=== PATIENT | female | born 1940 | race Caucasian/White ===

== ENCOUNTER 2025-01-11 09:55 | Inpatient (IN) | payer MEDICARE, OTHER ==
[~2025-01-11] VITALS: Ht 157.5 cm; Wt 72.1 kg
[2025-01-11 11:41] VITALS: BP 133/66; TEMP 98.2
[2025-01-11 12:23] VITALS: BP 133/66; TEMP 98.2
[2025-01-12 10:21] VITALS: BP 129/53; TEMP 97.8; O2SAT 94
[2025-01-12] MEDS ORDERED: AMIO200T5 PO (11:25)
[2025-01-12] MEDS ORDERED: APIX2.5T PO (11:25)
[2025-01-12] MEDS ORDERED: AMLO10TA59 PO (11:25)
[2025-01-12] MEDS ORDERED: ATOR20TA PO (11:27)
[2025-01-12] MEDS ORDERED: ASPI81TA31 PO (11:27)
[2025-01-12] MEDS ORDERED: DOCU-141 PO (11:32)
[2025-01-12] MEDS ORDERED: FERR-56 PO (11:32)
[2025-01-12] MEDS ORDERED: LORA-114 PO (11:32)
[2025-01-12] MEDS ORDERED: CAPSAICIN 0.075% TOP (11:32)
[2025-01-12] MEDS ORDERED: HYDR-4209 PO (11:32)
[2025-01-12] MEDS ORDERED: LOSA100T31 PO (11:38)
[2025-01-12] MEDS ORDERED: SPIR25TA6 PO (11:38)
[2025-01-12] MEDS ORDERED: TRAM50TA2 PO (11:38)
[2025-01-12] MEDS ORDERED: METO50TA7 PO (11:38)
[2025-01-12] MEDS: HYDROCODONE/APAP 5-325MG TABLET PO PRN (13:25)
[2025-01-12] MEDS: AMIODARONE HCL 200 MG TABLET PO SCH (13:32)
[2025-01-12] MEDS: LORATADINE 10 MG TABLET PO SCH (13:33)
[2025-01-12] MEDS: FERROUS SULFATE 325 MG TABEC PO SCH (13:33)
[2025-01-12] MEDS: SPIRONOLACTONE 25 MG TABLET PO SCH (13:33)
[2025-01-12] MEDS: AMLODIPINE 10 MG TABLET PO SCH (13:33)
[2025-01-12] MEDS: APIXABAN 2.5 MG TABLET PO SCH (13:34)
[2025-01-12 16:29] VITALS: BP 118/79; TEMP 97.7; O2SAT 93
[2025-01-12] MEDS: DOCUSATE SODIUM 100 MG CAPSULE PO SCH (16:40)
[2025-01-12 20:00] VITALS: BP 155/56; TEMP 97.6; O2SAT 95
[2025-01-12] MEDS: ATORVASTATIN 20 MG TABLET PO SCH (20:39)
[2025-01-12 22:22] VITALS: BP 138/63; TEMP 97.6; O2SAT 95
[2025-01-13 07:00] VITALS: BP 146/56; TEMP 97.8; O2SAT 92
[2025-01-13 07:31] VITALS: BP 135/62; TEMP 97.7; O2SAT 94
[2025-01-13] MEDS: METOPROLOL SUCCINATE XL 50 MG TAB.SR.24H PO SCH (08:20)
[2025-01-13 09:28] LABS: BASOPHILS % (AUTO) 0.5 % (0.0-2.0); EOSINOPHILS # (AUTO) 0.1 K/uL (0.0-0.7); HEMATOCRIT 36.6 % (31.2-41.9); HEMOGLOBIN 12.2 g/dL (10.9-14.3); LYMPHOCYTES # (AUTO) 2.6 K/uL (0.8-4.8); LYMPHOCYTES % (AUTO) 27.8 % (20.5-51.5); MEAN CORPUSCULAR HEMOGLOBIN 30.1 uug (24.7-32.8); MEAN CORPUSCULAR HGB CONC 33 g/dL (32.3-35.6); MEAN CORPUSCULAR VOLUME 90.2 fL (75.5-95.3); MONOCYTES # (AUTO) 0.9 K/uL (0.1-1.30); MONOCYTES % (AUTO) 9.6 % (0.0-11.0); NEUTROPHILS # (AUTO) 5.7 K/uL (1.8-8.9); NEUTROPHILS % (AUTO) 61.1 % (38.5-71.5); PLATELET COUNT (AUTO) 414 K/uL (179-408); RED BLOOD CELL COUNT(AUTO) 4.06 MIL/uL (3.63-4.92); RED CELL DISTRIBUTION WIDTH 13.6 % (12.3-17.7); WHITE BLOOD COUNT (AUTO) 9.3 K/uL (3.8-11.8)
[2025-01-13 09:34] LABS: DIFFERENTIAL COMMENT 1
[2025-01-13 09:46] LABS: ALANINE AMINOTRANSFERASE 69 U/L (14-59); ALBUMIN 2.4 g/dL (3.4-5.0); ALKALINE PHOSPHATASE 152 U/L (50-136); ASPARTATE AMINOTRANSFERASE 47 U/L (15-37); BILIRUBIN,TOTAL 0.3 mg/dL (0.2-1.0); CALCIUM 9.2 mg/dL (8.5-10.1); CARBON DIOXIDE 29 mmol/L (21-32); CHLORIDE 102 mmol/L (98-107); CREATININE 0.7 mg/dL (0.6-1.3); GLUCOSE 111 mg/dL (74-106); MAGNESIUM 2.2 mg/dL (1.8-2.4); PHOSPHOROUS 4.7 mg/dL (2.5-4.9); SODIUM SERUM 139 mmol/L (136-145); TOTAL PROTEIN, SERUM 6.7 g/dL (6.4-8.2); UREA NITROGEN, BLOOD 10 mg/dL (7-18)
[2025-01-13 09:53] LABS: THYROID STIMULATING HORMONE 1.662 mIU/mL (0.358-3.740)
[2025-01-13 10:38] LABS: IRON, SERUM 49 ug/dL (50-175)
[2025-01-13 11:05] LABS: CHOLESTEROL 140 mg/dL (<200); HDL CHOLESTEROL 45 mg/dL (40-60); TRIGLYCERIDES 105 MG/DL (30-150)
[2025-01-13] MEDS: LIDOCAINE 5% PATCH TD SCH (12:56)
[2025-01-13 15:41] VITALS: BP 133/59; TEMP 97.8; O2SAT 91
[2025-01-13 20:00] VITALS: BP 134/52; TEMP 97.9; O2SAT 92
[2025-01-14 08:00] VITALS: BP 136/61; TEMP 98; O2SAT 92
[2025-01-14 16:00] VITALS: BP 143/65; TEMP 97.2; O2SAT 98
[2025-01-14] MEDS: ENSURE ENLIVE (VAN) 240 ML LIQUID PO SCH (17:34)
[2025-01-14 20:35] VITALS: BP 130/41; TEMP 97.2; O2SAT 92
[2025-01-15 07:22] VITALS: BP 136/53; TEMP 97.8; O2SAT 94
[2025-01-15 08:04] VITALS: BP 116/51; TEMP 97.8; O2SAT 95
[2025-01-15 16:07] VITALS: BP 145/52; TEMP 97.8; O2SAT 95
[2025-01-15 20:49] VITALS: BP 111/47; TEMP 98.2; O2SAT 92
[2025-01-16 06:13] VITALS: TEMP 97.4
[2025-01-16 08:11] VITALS: BP 144/57; TEMP 97.7; O2SAT 93
[2025-01-16 15:51] VITALS: BP 128/48; TEMP 97.9; O2SAT 93
[2025-01-16 20:47] VITALS: BP 123/46; TEMP 98.1; O2SAT 94
[2025-01-17 06:10] VITALS: BP 134/87; TEMP 97.9; O2SAT 98
[2025-01-17 08:00] VITALS: BP 120/50; TEMP 97.8; O2SAT 98
[2025-01-17 16:00] VITALS: BP 121/51; TEMP 97.1; O2SAT 100
[2025-01-17 20:22] VITALS: BP 129/54; TEMP 98; O2SAT 92
[2025-01-18 06:05] VITALS: BP 141/57; TEMP 97.9; O2SAT 93
[2025-01-18 08:00] VITALS: BP 142/57; TEMP 97.6; O2SAT 98
[2025-01-18 16:04] VITALS: BP 123/49; TEMP 97.9; O2SAT 96
[2025-01-18 20:00] VITALS: BP 127/53; TEMP 98.3; O2SAT 95
[2025-01-19 05:00] VITALS: BP 130/58; TEMP 97.6; O2SAT 95
[2025-01-19 08:00] VITALS: BP 123/82; TEMP 97.7; O2SAT 95
[2025-01-19 15:53] VITALS: BP 119/50; TEMP 98; O2SAT 92
[2025-01-19 20:34] VITALS: BP 133/49; TEMP 97.1; O2SAT 95
[2025-01-20 07:13] VITALS: BP 126/46; TEMP 97.6; O2SAT 93
[2025-01-20 07:42] VITALS: BP 119/65; TEMP 97.2; O2SAT 97
[2025-01-20 16:00] VITALS: BP 124/55; TEMP 97.6; O2SAT 98
[2025-01-20 20:23] VITALS: BP 125/56; TEMP 98.2; O2SAT 94
[2025-01-21 05:20] VITALS: BP 118/51; TEMP 98.1; O2SAT 95
[2025-01-21 08:00] VITALS: BP 116/48; TEMP 98; O2SAT 94
[2025-01-21 16:16] VITALS: BP 110/46; TEMP 97.7; O2SAT 94
[2025-01-21 20:00] VITALS: BP 128/52; TEMP 98.2; O2SAT 97
[2025-01-22 05:00] VITALS: BP 144/60; TEMP 97.5; O2SAT 96
[2025-01-22 07:37] VITALS: BP 144/52; TEMP 97.8; O2SAT 95
[2025-01-22] MEDS ORDERED: ACETAMINOPHEN 325 MG TABLET PO PRN (09:30)
[2025-01-22 15:43] VITALS: BP 130/60; TEMP 98.1; O2SAT 95
[2025-01-22 19:33] VITALS: BP 117/51; TEMP 98.4; O2SAT 95
[2025-01-23 05:45] VITALS: BP 115/51; TEMP 98.2; O2SAT 95
[2025-01-23 07:31] VITALS: BP 120/58; TEMP 97.7; O2SAT 97
[2025-01-23 08:38] VITALS: BP 120/58
== END 2025-01-23 14:40 | disposition home health service (06) | DRG 560 ==
LOC: UNDOADMIN 11:06
PROVIDERS: ADMIT Physical Medicine & Rehabilitation Pain Medicine; ATTEND Physical Medicine & Rehabilitation Pain Medicine
DX: S22.089D Unspecified fracture of T11-T12 vertebra, subsequent encounter for fracture with routine healing (principal); D68.59 Other primary thrombophilia; E44.0 Moderate protein-calorie malnutrition; R53.1 Weakness; W19.XXXD Unspecified fall, subsequent encounter; S32.039D Unspecified fracture of third lumbar vertebra, subsequent encounter for fracture with routine healing; E78.5 Hyperlipidemia, unspecified; I10 Essential (primary) hypertension; I25.10 Atherosclerotic heart disease of native coronary artery without angina pectoris; I48.91 Unspecified atrial fibrillation; E66.9 Obesity, unspecified; Z68.29 Body mass index [BMI] 29.0-29.9, adult; E78.00 Pure hypercholesterolemia, unspecified; I27.20 Pulmonary hypertension, unspecified; K76.0 Fatty (change of) liver, not elsewhere classified; R73.03 Prediabetes; Z95.0 Presence of cardiac pacemaker; K21.9 Gastro-esophageal reflux disease without esophagitis; E61.1 Iron deficiency
CPT/HCPCS: 36415; 83550; 83735; 84100; 84443; 85025; 97535-GO-CO; A4663